=== PATIENT | male | born 1960 | race Caucasian/White ===

== ENCOUNTER 2018-03-25 20:22 | Emergency (ER) | payer BC, OTHER ==
--- NOTE | 2018-03-26 00:14 | ED Physician Documentation ---
PD HPI UPPER EXT INJURY - Stated complaint Stated Complaint: THUMB LAC - Chief complaint Chief Complaint: Laceration - History obtained from History obtained from: Patient - History of Present Illness Location: Right, Hand Type of injury: Fall, Laceration Where injury occurred: Home Timing - onset: Today (approximately 30 minutes [employer]) Timing - details: Abrupt onset Improved by: Rest Worsened by: Moving Associated symptoms: No: Weakness, Numbness, Tingling, Swelling, Discolored Contributing factors: No: Anticoagulated Similar symptoms before: Has not had sx before Recently seen: Not recently seen - Additonal information Additional information: tripped over his cat at home while holding glass which the broke, causing lacerations to right hand and right 3rd fingertip. he is right hand dominant Review of Systems Skin: reports: Laceration (s) Musculoskeletal: reports: Extremity pain Neurologic: denies: Focal weakness, Numbness PD PAST MEDICAL HISTORY - Past Medical History Past Medical History: No - Past Surgical History Past Surgical History: Yes - Present Medications Home Medications: Ambulatory Orders Medication Instructions Recorded Confirmed Topiramate [Topamax] 200 mg PO BID 02/05/13 05/21/14 carBAMazepine [TEGretol] 200 mg PO BID 02/05/13 05/21/14 Fexofenadine [Swetha] 60 mg PO DAILY 05/21/14 05/21/14 Lactobacillus Acidophilus 1 each PO DAILY 05/21/14 05/21/14 [Probiotic] Ondansetron HCl [Zofran] 4 mg PO DAILY PRN 05/21/14 05/21/14 Sorafenib Tosylate [Nexavar] 200 mg PO DAILY 05/21/14 05/21/14 - Allergies Allergies/Adverse Reactions: Allergies Allergy/AdvReac Type Severity Reaction Status Date / Time No Known Drug Allergies Allergy Verified 02/05/13 13:58 - Social History Does the pt smoke?: No Smoking Status: Never smoker Does the pt drink ETOH?: Yes - Immunizations Immunizations are current?: Yes PD ED PE NORMAL - Vitals Vital signs reviewed: Yes - General General: Alert and oriented X 3, No acute distress, Well developed/nourished - Extremities Extremities: No tenderness to palpate, Normal ROM s pain - Neuro Neuro: No motor deficit, No sensory deficit PD ED PE EXPANDED - Extremities Extremities: No: Limited ROM DAVIDA UE/Hands Visual: 1 - laceration (2 cm length) 2 - laceration (1 cm) Results - Vitals Vitals: Oxygen O2 Source Room air Procedures - Laceration (location) Hand right Length in cm: 2 Wound type: Curved, Into subcut fat, Clean Neurovascular status: Sensory intact, Motor intact, Vascular intact Tendon involvement: Tendon intact Anesthesia: Lidocaine 1% Wound Preparation: Chlorhexadine, Irrigated copiously NS, Wound explored, To the base Skin layer closure: Nylon, Interrupted, Size #-0 - enter number (4-0) Other: Patient tolerated well, No complications, Neurovascular intact, Dressing applied, Tetanus UTD Complexity: Simple Finger right Length in cm: 1 Wound type: Linear Neurovascular status: Sensory intact, Motor intact, Vascular intact Tendon involvement: Tendon intact Skin layer closure: Dermabond Other: Patient tolerated well, No complications Complexity: Simple PD MEDICAL DECISION MAKING - ED course Complexity details: considered differential, d/w patient Departure - Departure Disposition: 01 Home, Self Care Clinical Impression: Laceration Condition: Good Instructions: ED Laceration Hand, ED Laceration Ext Skin Glue, ED Laceration Ext Sutr Stap Tape Comments: Follow up with your doctor in 7-10 days for suture removal. Discharge Date/Time: 03/26/18 02:24
[2018-03-26] MEDS ORDERED: LIDOCAINE 1% 2 ML VIAL SUBQ STA (00:26)
[2018-03-26 02:23] VITALS: BP 148/98
== END 2018-03-26 02:24 | disposition home or self-care (01) ==
LOC: ED 20:22
DX: S61.411A Laceration without foreign body of right hand, initial encounter (principal); S61.212A Laceration without foreign body of right middle finger without damage to nail, initial encounter; W01.110A Fall on same level from slipping, tripping and stumbling with subsequent striking against sharp glass, initial encounter; Y92.009 Unspecified place in unspecified non-institutional (private) residence as the place of occurrence of the external cause
CPT/HCPCS: 12002; 99282; 99283

== ENCOUNTER → 2021-09-05 | Outpatient (CLI) | payer OTHER | END | disposition short-term general hospital (02) | LOC: EMS 15:11 | DX: R07.9 Chest pain, unspecified (principal); R61 Generalized hyperhidrosis; R42 Dizziness and giddiness | CPT/HCPCS: A0425; A0427 ==